=== PATIENT | male | born 2000 | race African-American/Black ===

== ENCOUNTER 2020-07-01 19:59 | Emergency (ER) | payer SELFPAY ==
[~2020-07-01] VITALS: Ht 170.2 cm; Wt 74.8 kg
== END 2020-07-01 22:09 | disposition home or self-care (01) ==
LOC: ER 19:59
DX: T75.1XXA Unspecified effects of drowning and nonfatal submersion, initial encounter (principal); S43.401A Unspecified sprain of right shoulder joint, initial encounter
CPT/HCPCS: 19001; 71045; 73030; 99284-25; A9270